=== PATIENT | female | born 1985 | race African-American/Black ===

== ENCOUNTER 2016-11-20 08:35 | Emergency (ER) | payer OTHER ==
[~2016-11-20] VITALS: Ht 160 cm; Wt 123.0 kg
[~2016-11-20 08:35] MED LIST: HYDR25TA PO
[2016-11-20] MEDS ORDERED: FAMOTIDINE 10 MG/ML 2 ML VIAL IVP ONE (10:30)
[2016-11-20] MEDS ORDERED: DiphenhydrAMINE HCL 50 MG/ML VIAL IVP ONE (10:30)
[2016-11-20] MEDS ORDERED: MethylPREDNISolone SOD SUCC 125 MG/2 ML VIAL IVP ONE (10:30)
[2016-11-20 12:27] VITALS: BP 123/86
== END 2016-11-20 12:58 | disposition home or self-care (01) ==
LOC: EMS 08:37
DX: K12.2 Cellulitis and abscess of mouth (principal)
CPT/HCPCS: 96374; 96375; 99284; J1200; J2930; J3490

== ENCOUNTER 2018-04-04 22:52 | Emergency (ER) | payer OTHER ==
[~2018-04-04] VITALS: Ht 157.5 cm; Wt 136.5 kg
[2018-04-04] MEDS ORDERED: LISI-662 PO (23:19)
[2018-04-05 01:54] VITALS: BP 147/77
[2018-04-05] MEDS ORDERED: ACETAMINOPHEN 325 MG TABLET PO ONE (02:00)
[2018-04-05] MEDS ORDERED: AMOX TR/POT CLAV 875 MG/125 MG TABLET PO ONE (02:00)
== END 2018-04-05 02:10 | disposition home or self-care (01) ==
LOC: EMS 22:56
DX: J02.0 Streptococcal pharyngitis (principal); I10 Essential (primary) hypertension
CPT/HCPCS: 99283

== ENCOUNTER 2018-07-03 09:28 | Emergency (ER) | payer OTHER ==
[~2018-07-03] VITALS: Ht 160 cm; Wt 135.0 kg
[~2018-07-03 09:28] MED LIST changes: +LISI-662 PO
[2018-07-03] MEDS ORDERED: LIDOCAINE 5% TRANSDERMAL PATCH TD ONE (11:30)
[2018-07-03 12:30] VITALS: BP 145/80
== END 2018-07-03 12:56 | disposition home or self-care (01) ==
LOC: EMS 09:30
DX: M25.512 Pain in left shoulder (principal); I10 Essential (primary) hypertension; Z79.899 Other long term (current) drug therapy

== ENCOUNTER 2019-08-25 19:09 | Emergency (ER) | payer OTHER ==
[~2019-08-25] VITALS: Ht 160 cm; Wt 140.4 kg
[~2019-08-25 19:09] MED LIST changes: +HYDR-1475 PO; -HYDR25TA PO
[2019-08-26] MEDS ORDERED: IBUPROFEN 600 MG TABLET PO ONE (02:15)
[2019-08-26] MEDS ORDERED: GuaiFENesin/D-METHORPHAN [SUGAR-FREE] 200-20MG/10 ML SYRUP UDCUP PO ONE (02:15)
[2019-08-26 02:28] VITALS: BP 154/97
== END 2019-08-26 02:32 | disposition home or self-care (01) ==
LOC: EMS 19:11
DX: J02.9 Acute pharyngitis, unspecified (principal); I10 Essential (primary) hypertension; Z79.899 Other long term (current) drug therapy; Z88.8 Allergy status to other drugs, medicaments and biological substances

== ENCOUNTER 2022-12-05 17:53 | Emergency (ER) | payer OTHER ==
[~2022-12-05] VITALS: Ht 154.9 cm; Wt 140.9 kg
[~2022-12-05 17:53] MED LIST changes: -HYDR-1475 PO; +HYDR25TA2 PO; -LISI-662 PO; +LISI-894 PO
[2022-12-05] MEDS ORDERED: LIDOCAINE 5% TRANSDERMAL PATCH TD ONE (18:45)
[2022-12-05] MEDS ORDERED: KETOROLAC TROMETHAMINE 30 MG/ML VIAL IM ONE (18:45)
[2022-12-05] MEDS ORDERED: BACLOFEN 10 MG TABLET PO ONE (18:45)
[2022-12-05] MEDS ORDERED: BACL10TA PO (20:10)
[2022-12-05] MEDS ORDERED: LIDO700A15 TP (20:11)
[2022-12-05] MEDS ORDERED: IBUP-1492 PO (20:11)
[2022-12-05 20:18] VITALS: BP 135/86
== END 2022-12-05 20:25 | disposition home or self-care (01) ==
LOC: EMS 17:53
DX: M54.50 Low back pain, unspecified (principal); I10 Essential (primary) hypertension; Z88.8 Allergy status to other drugs, medicaments and biological substances
CPT/HCPCS: 99283; 96372; J1885

== ENCOUNTER 2023-01-04 17:46 | Emergency (ER) | payer OTHER ==
[~2023-01-04] VITALS: Ht 154.9 cm; Wt 145.5 kg
[~2023-01-04 17:46] MED LIST changes: +BACL10TA PO; +IBUP-1492 PO; +LIDO700A15 TP
[2023-01-04] MEDS ORDERED: ACETAMINOPHEN 325 MG TABLET PO ONE (18:00)
[2023-01-04] MEDS ORDERED: LIDOCAINE 1% 10 ML VIAL SQ ONE (18:00)
[2023-01-04] MEDS ORDERED: PERTUSS(ACELL),DIPH,TET VAC/PF 0.5 ML SYRINGE IM. ONE (18:00)
[2023-01-04 18:08] VITALS: TEMP 98.5
[2023-01-04] MEDS ORDERED: BACITRACIN 0.9 GM PACKET OINTMENT TP ONE (19:15)
[2023-01-04 20:00] VITALS: BP 143/85; PULSE 78; RESP 20
== END 2023-01-04 20:00 | disposition home or self-care (01) ==
LOC: EMS 17:46
DX: S61.411A Laceration without foreign body of right hand, initial encounter (principal); I10 Essential (primary) hypertension; Z88.8 Allergy status to other drugs, medicaments and biological substances; V89.2XXA Person injured in unspecified motor-vehicle accident, traffic, initial encounter; Y93.89 Activity, other specified; Y92.89 Other specified places as the place of occurrence of the external cause; Y99.8 Other external cause status
CPT/HCPCS: 99283; 73130; 90715; 90471; 12001; J3490

== ENCOUNTER 2023-01-12 16:58 | Emergency (ER) | payer OTHER ==
[~2023-01-12] VITALS: Ht 154.9 cm; Wt 140.9 kg
[2023-01-12 17:01] VITALS: BP 160/80; PULSE 84; RESP 18; TEMP 98.2
== END 2023-01-12 17:09 | disposition still patient (30) ==
LOC: EMS 16:58
DX: S61.212D Laceration without foreign body of right middle finger without damage to nail, subsequent encounter (principal); I10 Essential (primary) hypertension; Z88.8 Allergy status to other drugs, medicaments and biological substances; Z48.02 Encounter for removal of sutures; X58.XXXD Exposure to other specified factors, subsequent encounter
CPT/HCPCS: 99281; Z7502

== ENCOUNTER 2023-02-27 21:16 | Emergency (ER) | payer OTHER ==
[~2023-02-27] VITALS: Ht 154.9 cm; Wt 145.0 kg
[2023-02-27 21:29] VITALS: TEMP 98.5
[2023-02-27] MEDS ORDERED: KETOROLAC TROMETHAMINE 30 MG/ML VIAL IM ONE (22:00)
[2023-02-27] MEDS ORDERED: LIDOCAINE 5% TRANSDERMAL PATCH TD ONE (22:00)
[2023-02-27 23:30] VITALS: BP 143/81; PULSE 81; RESP 17
[2023-02-28] MEDS ORDERED: CYCL-448 PO (00:01)
[2023-02-28] MEDS ORDERED: LIDO700A15 TP (00:13)
== END 2023-02-28 00:14 | disposition home or self-care (01) ==
LOC: EMS 21:17
DX: M75.22 Bicipital tendinitis, left shoulder (principal); I10 Essential (primary) hypertension; Z88.8 Allergy status to other drugs, medicaments and biological substances
CPT/HCPCS: 99283; 73030; 81025; 96372; J1885

== ENCOUNTER 2024-01-11 21:11 | Emergency (ER) | payer OTHER ==
[~2024-01-11] VITALS: Ht 154.9 cm; Wt 160.0 kg
[~2024-01-11 21:11] MED LIST changes: -BACL10TA PO; +CYCL-448 PO
[2024-01-11 21:47] LABS: BASOPHILS % (AUTO) 0.8 % (0.0-2.0); HEMATOCRIT 40.4 % (36-46); HEMOGLOBIN 13.4 g/dL (12.0-16.0); LYMPHOCYTES # (AUTO) 1.8 K/uL (1.0-4.8); LYMPHOCYTES % (AUTO) 25.5 % (22.0-44.0); MEAN CORPUSCULAR HEMOGLOBIN 28.2 pg (26.0-34.0); MEAN CORPUSCULAR HGB CONC 33.1 G/dL (31.0-37.0); MEAN CORPUSCULAR VOLUME 85 fL (80-100); MONOCYTES # (AUTO) 0.9 K/uL (0.1-1.0); MONOCYTES % (AUTO) 12.9 % (2.0-9.0); NEUTROPHILS # (AUTO) 4.1 K/uL (1.8-7.7); NEUTROPHILS % (AUTO) 59.8 % (40.0-70.0); PLATELET COUNT (AUTO) 207 K/uL (150-450); RED BLOOD CELL COUNT(AUTO) 4.74 MIL/uL (4.00-5.20); RED CELL DISTRIBUTION WIDTH 14.4 % (11.5-14.5); WHITE BLOOD COUNT (AUTO) 6.9 K/uL (4.5-11.0)
[2024-01-11 21:54] LABS: ANION GAP 8 mmol/L (8-16); CALCIUM, TOTAL 9.7 mg/dL (8.8-10.5); CARBON DIOXIDE 30 mmol/L (22-29); CHLORIDE 103 mmol/L (98-107); CREATININE 0.97 mg/dL (0.60-1.30); GLOMERULAR FILTR. RATE CALC > 60 mL/min (>60); GLUCOSE,RANDOM 89 mg/dL (70-110); POTASSIUM 3.1 mmol/L (3.5-5.1); SODIUM SERUM 141 mmol/L (136-145); UREA NITROGEN, BLOOD 7 mg/dL (7-18)
[2024-01-11 21:55] VITALS: RESP 20; TEMP 98
[2024-01-11 22:05] LABS: TROPONIN I-HIGH SENSITIVITY 9 ng/L (<51)
[2024-01-11 22:24] VITALS: BP 184/95; PULSE 80
[2024-01-11 22:28] LABS: B-TYPE NATRIURETIC PEPTIDE 13 pg/mL (0-100)
[2024-01-11] MEDS ORDERED: IBUP-1554 PO (22:57)
[2024-01-11] MEDS ORDERED: GUAIFDM PO (22:57)
== END 2024-01-11 23:10 | disposition home or self-care (01) ==
LOC: EMS 21:13
DX: R07.89 Other chest pain (principal); I10 Essential (primary) hypertension; E87.6 Hypokalemia; Z91.148 Patient's other noncompliance with medication regimen for other reason
CPT/HCPCS: 71046; 80048; 84484; 85025; 93005; 99285; 36415-L1; 36415-TC

== ENCOUNTER 2024-07-17 15:53 | Emergency (ER) | payer OTHER ==
[~2024-07-17] VITALS: Ht 154.9 cm; Wt 145.4 kg
[~2024-07-17 15:53] MED LIST changes: +GUAIFDM PO; +IBUP-1554 PO
[2024-07-17 16:02] VITALS: TEMP 98.4
[2024-07-17 16:40] LABS: ANION GAP 5 mmol/L (8-16); BASOPHILS % (AUTO) 0.9 % (0.0-2.0); CALCIUM, TOTAL 9.3 mg/dL (8.8-10.5); CARBON DIOXIDE 32 mmol/L (22-29); CHLORIDE 102 mmol/L (98-107); EOSINOPHILS % (AUTO) 2.4 % (1.0-6.0); GLOMERULAR FILTR. RATE CALC > 60 mL/min (>60); GLUCOSE,RANDOM 98 mg/dL (70-110); HEMOGLOBIN 13.8 g/dL (12.0-16.0); LYMPHOCYTES # (AUTO) 1.7 K/uL (1.0-4.8); LYMPHOCYTES % (AUTO) 26.7 % (22.0-44.0); MEAN CORPUSCULAR HEMOGLOBIN 29.2 pg (26.0-34.0); MEAN CORPUSCULAR HGB CONC 33.6 G/dL (31.0-37.0); MEAN CORPUSCULAR VOLUME 87 fL (80-100); MONOCYTES # (AUTO) 0.6 K/uL (0.1-1.0); MONOCYTES % (AUTO) 8.8 % (2.0-9.0); NEUTROPHILS # (AUTO) 3.9 K/uL (1.8-7.7); NEUTROPHILS % (AUTO) 61.2 % (40.0-70.0); PLATELET COUNT (AUTO) 193 K/uL (150-450); POTASSIUM 3.9 mmol/L (3.5-5.1); RED BLOOD CELL COUNT(AUTO) 4.71 MIL/uL (4.00-5.20); RED CELL DISTRIBUTION WIDTH 14.4 % (11.5-14.5); SODIUM SERUM 139 mmol/L (136-145); UREA NITROGEN, BLOOD 8 mg/dL (7-18); WHITE BLOOD COUNT (AUTO) 6.3 K/uL (4.5-11.0)
[2024-07-17 16:41] LABS: LIPASE 19 U/L (16-77)
[2024-07-17 17:48] LABS: APPEARANCE,URINE HAZY (CLEAR); BILIRUBIN,URINE NEGATIVE (NEGATIVE); COLOR,URINE YELLOW (YELLOW); GLUCOSE, URINE (UA) NEGATIVE (NEGATIVE); KETONES,URINE 40-60 mg/dL (NEGATIVE); LEUKOCYTE ESTERASE ,URINE LARGE (NEGATIVE); NITRATE,URINE NEGATIVE (NEGATIVE); OCCULT BLOOD,URINE TRACE (NEGATIVE); PH,URINE 5.5 (5.0-8.0); PROTEIN,URINE TRACE mg/dL (NEGATIVE); SPECIFIC GRAVITIY, URINE 1.024 (1.003-1.030); UROBILINOGEN,URINE <=1.0 mg/dL (<=1.0)
[2024-07-17 18:22] LABS: RBC,URINE 0-2 /HPF (0-2)
[2024-07-17 18:23] LABS: BACTERIA,URINE Few /HPF (None Seen); SQUAMOUS EPITHELIAL CELL,UR Moderate /LPF (None Seen); WBC,URINE 26-50 /HPF (0-5)
[2024-07-17] MEDS ORDERED: ONDA-104 PO (20:30)
[2024-07-17] MEDS ORDERED: CEPH-558 PO (20:30)
[2024-07-17] MEDS: ONDANSETRON 4 MG TABLET PO ONE (20:35)
[2024-07-17] MEDS: CefTRIAXone SODIUM 1 GM/VIAL IM ONE (20:35)
[2024-07-17] MEDS: LIDOCAINE/PF 1% 2 ML VIAL IM ONE (20:35)
[2024-07-17 21:09] VITALS: BP 152/83; PULSE 72; RESP 16; O2SAT 98
== END 2024-07-17 21:11 | disposition home or self-care (01) ==
LOC: EMS 15:53
DX: N39.0 Urinary tract infection, site not specified (principal); R11.2 Nausea with vomiting, unspecified; I10 Essential (primary) hypertension; Z88.8 Allergy status to other drugs, medicaments and biological substances; Z79.899 Other long term (current) drug therapy
CPT/HCPCS: 99283; 80048; 81001; 83690; 84703; 85025; 87086; 36415; 96372; J0696; J3490; Q0162

== ENCOUNTER 2025-03-11 20:09 | Emergency (ER) | payer OTHER ==
[~2025-03-11] VITALS: Ht 154.9 cm; Wt 154.0 kg
[~2025-03-11 20:09] MED LIST changes: +CEPH-558 PO; -CYCL-448 PO; -GUAIFDM PO; -IBUP-1492 PO; -IBUP-1554 PO; -LIDO700A15 TP; +ONDA-104 PO
[2025-03-11 20:14] VITALS: BP 183/102; PULSE 90; RESP 18; TEMP 98.3; O2SAT 100
[2025-03-11 21:02] LABS: PLATELET COUNT (AUTO) 214 K/uL (150-450); RED BLOOD CELL COUNT(AUTO) 4.86 MIL/uL (4.00-5.20); RED CELL DISTRIBUTION WIDTH 14.2 % (11.5-14.5); WHITE BLOOD COUNT (AUTO) 5.3 K/uL (4.5-11.0)
[2025-03-11 21:09] LABS: CALCIUM, TOTAL 9.3 mg/dL (8.8-10.5); CREATININE 1.12 mg/dL (0.60-1.30); GLOMERULAR FILTR. RATE CALC > 60 mL/min (>60); GLUCOSE,RANDOM 122 mg/dL (70-110); SODIUM SERUM 137 mmol/L (136-145); UREA NITROGEN, BLOOD 11 mg/dL (7-18)
== END 2025-03-11 22:52 | disposition home or self-care (01) ==
LOC: EMS 20:12
DX: T78.3XXA Angioneurotic edema, initial encounter (principal); T46.4X5A Adverse effect of angiotensin-converting-enzyme inhibitors, initial encounter; I10 Essential (primary) hypertension; Z79.899 Other long term (current) drug therapy; Z88.5 Allergy status to narcotic agent; Y92.89 Other specified places as the place of occurrence of the external cause
CPT/HCPCS: 80048; 84703; 85025; 99283